=== PATIENT | female | born 1985 | race Caucasian/White ===

== ENCOUNTER 2017-05-10 17:32 | Emergency (ER) | payer BC, MEDICAID ==
[2017-05-10 17:52] VITALS: BP 127/85
[2017-05-10] MEDS ORDERED: Sodium Chloride 0.9% 10 ML Syringe FLUSH PRN (18:04)
[2017-05-10] MEDS ORDERED: diphenhydrAMINE 50 MG/ML SDV IVPUSH ONE (18:12)
[2017-05-10] MEDS ORDERED: Metoclopramide 10 MG/2 ML SDV IVPUSH ONE (18:12)
[2017-05-10] MEDS ORDERED: Ketorolac 30 MG/ML SDV IVPUSH SCH (18:15)
[2017-05-10] MEDS ORDERED: Sodium Chloride 0.9% 1,000 ML IV SCH (18:15)
--- NOTE | 2017-05-10 18:29 | EDM.PDOC ---
ED HPI GENERAL MEDICAL PROBLEM - General Chief Complaint: Headache Stated Complaint: MIGRAINE Time Seen by Provider: 05/10/17 17:57 Source of Information: Reports: Patient, RN Notes Reviewed - History of Present Illness INITIAL COMMENTS - FREE TEXT/NARRATIVE: 31-year-old female comes in with headache. This first started 4 days ago. The headache is been present for most of the 4 days. She does have history of migraines and this is fairly similar. The discomfort this time is more left- sided and also pounding and throbbing in nature. She has had some nausea with this. No recent fever chills or other unusual symptomatology. Treatments DIVISION CONTROLLER: Reports: Other (see below) Other Treatments DIVISION CONTROLLER: excederin migraine at 1000 front of head/top left head Pain Score (Numeric/FACES): 6 - Related Data Allergies Allergy/AdvReac Type Severity Reaction Status Date / Time Penicillins Allergy Rash Verified 05/10/17 17:52 codeine AdvReac Nausea Verified 05/10/17 17:52 Home Meds: Home Meds ALPRAZolam [Alprazolam] 1 tab PO DAILY PRN 05/10/17 [History] Sertraline HCl [Sertraline HCl] 1 tab PO DAILY 05/10/17 [History] atorvaSTATin Calcium [Atorvastatin Calcium] 1 tab PO DAILY 05/10/17 [History] traZODone HCl [Trazodone HCl] 1 tab PO ASDIRECTED 05/10/17 [History] Past Medical History Cardiovascular History: Reports: High Cholesterol Neurological History: Reports: Headaches, Chronic, Migraines Psychiatric History: Reports: Anxiety, Depression - Past Surgical History Female Surgical History: Reports: Section Social & Family History - Family History Family Medical History: Noncontributory - Tobacco Use Smoking Status *Q: Current Every Day Smoker Years of Tobacco use: 1 Packs/Tins Daily: 1 - Caffeine Use Caffeine Use: Reports: Soda - Recreational Drug Use Recreational Drug Use: No ED ROS GENERAL - Review of Systems Review Of Systems: See Below Constitutional: Denies: Fever, Chills HEENT: Denies: Sinus Problem, Throat Pain, Vision Change Respiratory: Denies: Shortness of Breath Cardiovascular: Denies: Chest Pain GI/Abdominal: Reports: Nausea. Denies: Abdominal Pain, Vomiting Musculoskeletal: Denies: Neck Pain, Back Pain Skin: Reports: No Symptoms Neurological: Reports: Headache. Denies: Numbness, Tingling - Physical Exam Exam: See Below General Appearance: Alert, Moderate Distress Eye Exam: Bilateral Eye: PERRL Throat/Mouth: Normal Inspection, Normal Oropharynx Head Exam: Atraumatic. No: Facial Swelling Neck: Supple, Full Range of Motion Respiratory/Chest: No Respiratory Distress, Lungs Clear, Normal Breath Sounds Cardiovascular: Regular Rate, Rhythm Neuro Exam (Abbreviated): Alert, Oriented, No Motor/Sensory Deficits Skin Exam: Warm, Dry, Normal Color Course - Vital Signs Last Recorded V/S: Last Vital Signs Temp 98.1 F 05/10/17 17:48 Pulse 98 05/10/17 17:48 Resp 18 05/10/17 17:48 BP 127/85 05/10/17 17:48 Pulse Ox 98 05/10/17 17:48 - Orders/Labs/Meds Orders: Active Orders 24 hr Category Date Time Status Peripheral IV Care [RC] . DIRECTED Care 05/10/17 18:04 Active Ketorolac [Toradol] Med 05/10/17 18:15 Active 30 mg IVPUSH ONETIME Sodium Chloride 0.9% [Normal Saline] 1,000 ml Med 05/10/17 18:15 Active IV ONETIME Sodium Chloride 0.9% [Saline Flush] Med 05/10/17 18:04 Active 10 ml FLUSH ASDIRECTED PRN Peripheral IV Insertion Adult [OM.PC] Stat Oth 05/10/17 18:04 Ordered Medication Orders Sodium Chloride (Normal Saline) 1,000 mls @ 999 mls/hr IV ONETIME VAMSI Last Admin: 05/10/17 18:35 Dose: 999 mls/hr Ketorolac Tromethamine (Toradol) 30 mg IVPUSH ONETIME VAMSI Last Admin: 05/10/17 18:31 Dose: 30 mg Sodium Chloride (Saline Flush) 10 ml FLUSH ASDIRECTED PRN PRN Reason: Keep Vein Open Last Admin: 05/10/17 18:25 Dose: 10 ml Meds: Medications Generic Name Dose Route Start Last Admin Trade Name Freq PRN Reason Stop Dose Admin Sodium Chloride 1,000 mls @ 999 mls/hr 05/10/17 18:15 05/10/17 18:35 Normal Saline IV 999 mls/hr ONETIME VAMSI Administration Ketorolac Tromethamine 30 mg 05/10/17 18:15 05/10/17 18:31 Toradol IVPUSH 30 mg ONETIME VAMSI Administration Sodium Chloride 10 ml 05/10/17 18:04 05/10/17 18:25 Saline Flush FLUSH 10 ml ASDIRECTED PRN Administration Keep Vein Open Discontinued Medications Generic Name Dose Route Start Last Admin Trade Name Jeannie PRN Reason Stop Dose Admin Diphenhydramine HCl 50 mg 05/10/17 18:12 05/10/17 18:33 Benadryl IVPUSH 05/10/17 18:13 50 mg ONETIME ONE Administration Metoclopramide HCl 10 mg 05/10/17 18:12 05/10/17 18:27 Reglan IVPUSH 05/10/17 18:13 10 mg ONETIME ONE Administration - Re-Assessments/Exams Free Text/Narrative Re-Assessment/Exam: 05/10/17 18:56 Feeling better after IV Toradol, Reglan and Benadryl. The headache is down to about a "4". She would like to wait give this a bit longer and then see if she is going to need further medication or not prior to discharge. I am at the end of my shift. I will visit with nursing staff, Haldol 5 mg IV would be the next medication given if needed. Departure - Departure Time of Disposition: 19:25 Disposition: Home, Self-Care 01 Condition: Fair Clinical Impression: Migraine - Discharge Information Forms: ED Department Discharge Additional Instructions: Rest, continue current medications as previously prescribed, follow-up clinic if not much better by morning as expected, return to ED as needed. - My Orders Last 24 Hours: My Active Orders 05/10/17 18:04 Peripheral IV Care [RC] . DIRECTED Sodium Chloride 0.9% [Saline Flush] 10 ml FLUSH ASDIRECTED PRN Peripheral IV Insertion Adult [OM.PC] Stat 05/10/17 18:15 Ketorolac [Toradol] 30 mg IVPUSH ONETIME Sodium Chloride 0.9% [Normal Saline] 1,000 ml IV ONETIME - Assessment/Plan Last 24 Hours: My Active Orders 05/10/17 18:04 Peripheral IV Care [RC] . DIRECTED Sodium Chloride 0.9% [Saline Flush] 10 ml FLUSH ASDIRECTED PRN Peripheral IV Insertion Adult [OM.PC] Stat 05/10/17 18:15 Ketorolac [Toradol] 30 mg IVPUSH ONETIME Sodium Chloride 0.9% [Normal Saline] 1,000 ml IV ONETIME
== END 2017-05-10 19:45 | disposition home or self-care (01) ==
LOC: JD.ED 17:32
DX: G43.909 Migraine, unspecified, not intractable, without status migrainosus (principal); F41.9 Anxiety disorder, unspecified; F32.9 Major depressive disorder, single episode, unspecified; E78.00 Pure hypercholesterolemia, unspecified; F17.210 Nicotine dependence, cigarettes, uncomplicated; Z79.899 Other long term (current) drug therapy; Z88.0 Allergy status to penicillin; Z88.5 Allergy status to narcotic agent
CPT/HCPCS: 96361; 96374; 96375; 99283; J1200; J1885; J2765; J7040; J7050

== ENCOUNTER 2017-10-13 02:10 | Emergency (ER) | payer BC, MEDICAID ==
[2017-10-13 02:23] VITALS: BP 149/86
--- NOTE | 2017-10-13 02:43 | EDM.PDOC ---
ED HPI GENERAL MEDICAL PROBLEM - General Chief Complaint: ENT Problem Stated Complaint: THROAT PAIN AND TROUBLE BREATHING Time Seen by Provider: 10/13/17 02:35 - History of Present Illness INITIAL COMMENTS - FREE TEXT/NARRATIVE: 32-year-old female presents emergency room with a sore throat. This started about a day ago she's noted some swelling to the back of her throat. She has not had any fevers or chills. She has not had any abdominal pain no nausea no vomiting no diarrhea no cough or congestion. Throat Pain Score (Numeric/FACES): 10 - Related Data Allergies Allergy/AdvReac Type Severity Reaction Status Date / Time Penicillins Allergy Rash Verified 10/13/17 02:19 codeine AdvReac Nausea Verified 10/13/17 02:19 Home Meds: Home Meds ALPRAZolam [Alprazolam] 1 tab PO DAILY PRN 05/10/17 [History] Sertraline HCl [Sertraline HCl] 1 tab PO DAILY 05/10/17 [History] atorvaSTATin Calcium [Atorvastatin Calcium] 1 tab PO DAILY 05/10/17 [History] traZODone HCl [Trazodone HCl] 1 tab PO ASDIRECTED 05/10/17 [History] Clindamycin HCl 300 mg PO Q8H #30 capsule 10/13/17 [Rx] predniSONE [Prednisone] 10 mg PO QAM #3 tablet 10/13/17 [Rx] Past Medical History Cardiovascular History: Reports: High Cholesterol Neurological History: Reports: Headaches, Chronic, Migraines Psychiatric History: Reports: Anxiety, Depression - Past Surgical History Female Surgical History: Reports: Section Social & Family History - Family History Family Medical History: Noncontributory - Tobacco Use Smoking Status *Q: Former Smoker Years of Tobacco use: 15 Packs/Tins Daily: 1 Used Tobacco, but Quit: Yes Month Tobacco Last Used: 2016 - Caffeine Use Caffeine Use: Reports: None - Recreational Drug Use Recreational Drug Use: No ED ROS ENT - Review of Systems Review Of Systems: Unable To Obtain Constitutional: Reports: No Symptoms HEENT: Reports: Throat Pain Respiratory: Reports: No Symptoms Cardiovascular: Reports: No Symptoms GI/Abdominal: Reports: No Symptoms ED EXAM, ENT - Physical Exam Exam: See Below Exam Limited By: No Limitations General Appearance: Alert, No Apparent Distress Ears: Normal External Exam, Normal Canal, Normal TMs Nose: Normal Inspection, Normal Mucousa Mouth/Throat: Normal Gums, Normal Lips, Normal Teeth, Other (Posterior pharynx is moderately erythematous no exudate mildly swollen) Head: Atraumatic, Normocephalic Neck: Normal Inspection, Supple, Non-Tender. No: Lymphadenopathy (L), Lymphadenopathy (R) Respiratory/Chest: No Respiratory Distress, Lungs Clear, Normal Breath Sounds Cardiovascular: Normal Peripheral Pulses, Regular Rate, Rhythm, No Edema GI/Abdominal: Normal Bowel Sounds, Soft, Non-Tender, Other (No splenic or hepatic enlargement) Course - Vital Signs Last Recorded V/S: Last Vital Signs Temp 37.2 C 10/13/17 02:15 Pulse 94 10/13/17 02:15 Resp 18 10/13/17 02:15 BP 149/86 H 10/13/17 02:15 Pulse Ox 100 10/13/17 02:15 - Orders/Labs/Meds Orders: Active Orders 24 hr Category Date Time Status STREP SCRN A RAPID W CULT CONF [RM] Stat Lab 10/13/17 02:31 Results Meds: Medications Discontinued Medications Generic Name Dose Route Start Last Admin Trade Name Jeannie PRN Reason Stop Dose Admin Clindamycin HCl 300 mg 10/13/17 03:00 Cleocin PO 10/13/17 03:01 ONETIME ONE Prednisone 40 mg 10/13/17 02:59 Prednisone PO 10/13/17 03:00 ONETIME ONE - Re-Assessments/Exams Free Text/Narrative Re-Assessment/Exam: 10/13/17 03:11 Rapid strep is positive she'll be started on clindamycin as she is pen allergic and she'll be started on low-dose steroids. Departure - Departure Time of Disposition: 03:11 Disposition: Home, Self-Care 01 Clinical Impression: Strep pharyngitis - Discharge Information Prescriptions: Clindamycin HCl 300 mg PO Q8H #30 capsule predniSONE [Prednisone] 10 mg PO QAM #3 tablet Referrals: Vivien Ross PA-C [Primary Care Provider] - Forms: ED Department Discharge Additional Instructions: Return to the emergency room with any questions problems or worsening symptoms. You been started on 2 medications the first ones prednisone this is a steroid this is to help with the discomfort and swelling in the area your given 40 mg in the emergency room this morning starting Friday when she did take 30 mg every morning for 3 days. You have also been started on clindamycin this is an antibiotic he take one 3 times a day for 10 days. Follow-up in the clinic at the end of this week if needed. You are contagious for the first 24 hours after starting therapy. - My Orders Last 24 Hours: My Active Orders 10/13/17 02:31 STREP SCRN A RAPID W CULT CONF [RM] Stat - Assessment/Plan Last 24 Hours: My Active Orders 10/13/17 02:31 STREP SCRN A RAPID W CULT CONF [RM] Stat
[2017-10-13] MEDS ORDERED: predniSONE 20 MG Tab PO ONE (02:59)
[2017-10-13] MEDS ORDERED: Clindamycin HCl 150 MG Cap PO ONE (03:00)
== END 2017-10-13 03:22 | disposition home or self-care (01) ==
LOC: JD.ED 02:10
DX: J02.0 Streptococcal pharyngitis (principal); E78.00 Pure hypercholesterolemia, unspecified; F32.9 Major depressive disorder, single episode, unspecified; Z87.891 Personal history of nicotine dependence; Z79.899 Other long term (current) drug therapy; Z88.0 Allergy status to penicillin; Z88.5 Allergy status to narcotic agent
CPT/HCPCS: 87430; 99283; A9270

== ENCOUNTER 2019-07-22 18:32 | Emergency (ER) | payer BC ==
[2019-07-22 18:52] VITALS: BP 150/88
--- NOTE | 2019-07-22 19:37 | EDM.PDOCBH ---
ED HPI GENERAL MEDICAL PROBLEM - General Chief Complaint: Behavioral/Psych Stated Complaint: HAVING BAD THOUGHTS Time Seen by Provider: 07/22/19 19:02 Source of Information: Reports: Patient History Limitations: Reports: Other (Flat affect, slightly angry, reluctant to answer questions or elaborate) - History of Present Illness INITIAL COMMENTS - FREE TEXT/NARRATIVE: The patient states that she felt like harming herself by driving her car in to something, on 2 occasions today. She acknowledges that she is under increased stress. She states that she filed a restraining order on a coworker, but that the coworker violated the restraining order. She doesn't feel threatened, exactly, but she does feel unsafe. She denies having harmed herself today, or ever. She denies drinking alcohol or using any recreational drugs, recently. The patient states that she has had similar thoughts of harming herself on 2 prior occasions; the first when she was in high school, the second about 3 years ago. On neither of those occasions was she psychiatrically evaluated, however, her PCP started her on Wellbutrin and sertraline after the episode 3 years ago. The patient states that she has never seen a Psychiatrist or been psychiatrically hospitalized. She states that she stopped all of her medications, including her Wellbutrin, sertraline, alprazolam, metformin, and atorvastatin about 2 weeks ago. She states that she didn't think she needed them anymore. The patient denies having recent illness, such as fever, chills, cough, dyspnea , chest pain, palpitations, nausea, vomiting, constipation, diarrhea, abdominal pain, urinary symptoms, recent weight gain or weight loss, recent bloody bowel movements or black bowel movements, joint aches, headaches, or rashes. The patient's PCP is SEPIDEH Diaz. She has seen Paula Orellana NP for women's health in the past. - Related Data Allergies Allergy/AdvReac Type Severity Reaction Status Date / Time Penicillins Allergy Rash Verified 07/22/19 18:52 codeine AdvReac Nausea Verified 07/22/19 18:52 Home Meds: Home Meds ALPRAZolam [Alprazolam] 1 tab PO DAILY PRN 05/10/17 [History] Sertraline HCl 150 mg PO DAILY 05/10/17 [History] atorvaSTATin Calcium [Atorvastatin Calcium] 1 tab PO DAILY 05/10/17 [History] traZODone HCl [Trazodone HCl] 1 tab PO ASDIRECTED 05/10/17 [History] Copper [Paragard T 380-A] 1 each IY ASDIRECTED 06/11/19 [History] Hydrocodone Bit/Homatrop Me-Br [Hydrocodone Compound Syrup] 5 ml PO Q6H PRN #1 bottle 06/11/19 [Rx] buPROPion [Wellbutrin] 0 mg PO DAILY 06/11/19 [History] metFORMIN [Glucophage] 500 mg PO BIDMEALS 06/11/19 [History] Past Medical History HEENT History: Reports: Impaired Vision Cardiovascular History: Reports: High Cholesterol (untreated) COUNTY AGENT History: Reports: Psychiatric History: Reports: Anxiety (untreated), Depression (untreated) Endocrine/Metabolic History: Reports: Other (See Below) (Insulin resistance, untreated) - Past Surgical History HEENT Surgical History: Reports: Oral Surgery (wisdom teeth extraction) Female Surgical History: Reports: Section (x 3) Social & Family History - Family History Family Medical History: Noncontributory - Tobacco Use Smoking Status *Q: Current Every Day Smoker Years of Tobacco use: 15 Packs/Tins Daily: 0.3 Packs/Tins Daily Comment: Down from 1/2 ppd - Caffeine Use Caffeine Use: Reports: Coffee, Soda - Alcohol Use Alcohol Use History: Yes Alcohol Use Frequency: Socially (to excess on occasion) - Recreational Drug Use Recreational Drug Use: Yes Drug Use in Last 12 Months: No Recreational Drug Type: Reports: Marijuana/Hashish (last smoked in HS) - Living Situation & Occupation Living situation: Reports: , with Family (3 kids) Occupation: Employed ([employer]) ED ROS GENERAL - Review of Systems Review Of Systems: ROS reveals no pertinent complaints other than HPI. Neurological: Reports: Headache (frequent) ED EXAM, BEHAVIORAL HEALTH - Physical Exam Exam: See Below Exam Limited By: No Limitations General Appearance: Alert, WD/WN, No Apparent Distress Eye Exam: Bilateral Eye: EOMI, Normal Inspection Ears: Normal External Exam, Hearing Grossly Normal Nose: Normal Inspection Throat/Mouth: Normal Inspection, Normal Lips, Normal Voice, No Airway Compromise Head: Atraumatic, Normocephalic Neck: Normal Inspection, Full Range of Motion Respiratory/Chest: No Respiratory Distress, Lungs Clear, Normal Breath Sounds, No Accessory Muscle Use Cardiovascular: Normal Peripheral Pulses, Regular Rate, Rhythm, No Gallop, No JVD, No Murmur, No Rub GI/Abdominal: Normal Bowel Sounds, Soft, Non-Tender, No Organomegaly, No Distention, No Abnormal Bruit, No Mass (Female) Exam: Deferred Rectal (Female) Exam: Deferred Back Exam: Normal Inspection, Full Range of Motion, NT Extremities: Normal Inspection, Normal Range of Motion, No Pedal Edema, Normal Capillary Refill Neurological: Alert, Normal Cognition, No Motor/Sensory Deficits, Oriented x 3 Psychiatric: Flat Affect Skin Exam: Warm, Dry, Intact, Normal color, No rash EKG INTERPRETATION EKG Date: 07/22/19 Time: 19:47 Rhythm: NSR Rate (Beats/Min): 84 [place]: Normal P-Wave: Present QRS: Normal ST-T: Normal QT: Normal Comparison: NA - No Prior EKG COURSE, BEHAVIORAL HEALTH COMP - Course Vital Signs: Last Vital Signs Temp 36.4 C 07/22/19 18:50 Pulse Resp 20 07/22/19 18:50 BP 150/88 H 07/22/19 18:50 Pulse Ox 99 07/22/19 18:50 Orders, Labs, Meds: Active Orders 24 hr Category Date Time Status EKG Documentation Completion [RC] STAT Care 07/22/19 19:35 Active Laboratory Tests 07/22/19 07/22/19 07/22/19 Range/Units 19:45 19:45 19:54 WBC 10.88 H (3.98-10.04) K/mm3 RBC 4.33 (3.98-5.22) M/mm3 Hgb 13.0 (11.2-15.7) gm/dl Hct 37.8 (34.1-44.9) % MCV 87.3 (79.4-94.8) fl MCH 30.0 (25.6-32.2) pg MCHC 34.4 (32.2-35.5) g/dl RDW Std Deviation 39.4 (36.4-46.3) fL Plt Count 389 H (182-369) K/mm3 MPV 10.4 (9.4-12.3) fl Neutrophils % (Manual) 63 H (40-60) % Band Neutrophils % 0 (0-10) % Lymphocytes % (Manual) 26 (20-40) % Atypical Lymphs % 0 % Monocytes % (Manual) 7 (2-10) % Eosinophils % (Manual) 4 (0.7-5.8) % Basophils % (Manual) 0 L (0.1-1.2) Platelet Estimate Adequate RBC Morph Comment Normal Sodium (136-145) mEq/L Potassium (3.5-5.1) mEq/L Chloride (98-107) mEq/L Carbon Dioxide (21-32) mEq/L Anion Gap (5-15) BUN (7-18) mg/dL Creatinine (0.55-1.02) mg/dL Est Cr Clr Drug Dosing mL/min Estimated GFR (MDRD) (>60) mL/min BUN/Creatinine Ratio (14-18) Glucose (74-106) mg/dL Calcium (8.5-10.1) mg/dL Total Bilirubin (0.2-1.0) mg/dL AST (15-37) U/L ALT (14-59) U/L Alkaline Phosphatase (46-116) U/L Total Protein (6.4-8.2) g/dl Albumin (3.4-5.0) g/dl Globulin gm/dL Albumin/Globulin Ratio (1-2) TSH 3rd Generation (0.358-3.74) uIU/mL Urine HCG, Qual Negative (NEGATIVE) Salicylates (2.8-20) mg/dL Urine Opiates Screen Negative (NPKUCK=801) Ur Buprenorphine Scrn Negative (CUTOFF=10) Ur Oxycodone Screen Negative (PQO8QN=217) Urine Methadone Screen Negative (NNMKIO=332) Ur Propoxyphene Screen Negative (ZOHSVH=060) Acetaminophen (10-30) ug/mL Ur Barbiturates Screen Negative (LHPBLF=880) Ur Tricyclics Screen Negative (NZISFZ=116) Ur Phencyclidine Scrn Negative (CUTOFF=25) Ur Amphetamine Screen Negative (CXXRZQ=120) U Methamphetamines Scrn Negative (YDEWWL=990) U Benzodiazepines Scrn Negative (TDLLKA=641) U Cocaine Metab Screen Negative (EUCTEJ=913) U Marijuana (THC) Screen Negative (CUTOFF=50) Ethyl Alcohol (0.00) gm% 07/22/19 07/22/19 Range/Units 19:54 19:54 WBC (3.98-10.04) K/mm3 RBC (3.98-5.22) M/mm3 Hgb (11.2-15.7) gm/dl Hct (34.1-44.9) % MCV (79.4-94.8) fl MCH (25.6-32.2) pg MCHC (32.2-35.5) g/dl RDW Std Deviation (36.4-46.3) fL Plt Count (182-369) K/mm3 MPV (9.4-12.3) fl Neutrophils % (Manual) (40-60) % Band Neutrophils % (0-10) % Lymphocytes % (Manual) (20-40) % Atypical Lymphs % % Monocytes % (Manual) (2-10) % Eosinophils % (Manual) (0.7-5.8) % Basophils % (Manual) (0.1-1.2) Platelet Estimate RBC Morph Comment Sodium 142 (136-145) mEq/L Potassium 3.3 L (3.5-5.1) mEq/L Chloride 107 (98-107) mEq/L Carbon Dioxide 24 (21-32) mEq/L Anion Gap 14.3 (5-15) BUN 11 (7-18) mg/dL Creatinine 0.8 (0.55-1.02) mg/dL Est Cr Clr Drug Dosing 75.48 mL/min Estimated GFR (MDRD) > 60 (>60) mL/min BUN/Creatinine Ratio 13.8 L (14-18) Glucose 96 (74-106) mg/dL Calcium 9.2 (8.5-10.1) mg/dL Total Bilirubin 0.2 (0.2-1.0) mg/dL AST 10 L (15-37) U/L ALT 22 (14-59) U/L Alkaline Phosphatase 55 (46-116) U/L Total Protein 7.3 (6.4-8.2) g/dl Albumin 3.7 (3.4-5.0) g/dl Globulin 3.6 gm/dL Albumin/Globulin Ratio 1.0 (1-2) TSH 3rd Generation 2.062 (0.358-3.74) uIU/mL Urine HCG, Qual (NEGATIVE) Salicylates 1.2 L (2.8-20) mg/dL Urine Opiates Screen (RKSFFS=082) Ur Buprenorphine Scrn (CUTOFF=10) Ur Oxycodone Screen (FPX7BZ=107) Urine Methadone Screen (UFMQXA=976) Ur Propoxyphene Screen (EKXIPR=351) Acetaminophen 0 L (10-30) ug/mL Ur Barbiturates Screen (HQKXLG=896) Ur Tricyclics Screen (KVSCQK=328) Ur Phencyclidine Scrn (CUTOFF=25) Ur Amphetamine Screen (DHWEOA=508) U Methamphetamines Scrn (UBAAVR=150) U Benzodiazepines Scrn (JHYOAB=900) U Cocaine Metab Screen (YQVLSG=560) U Marijuana (THC) Screen (CUTOFF=50) Ethyl Alcohol 0.00 (0.00) gm% Medical Clearance: 07/22/19 19:36 The patient appears to be suffering from significant depression and suicidal ideation, and while she has not attempted to harm herself, she does have a plan of sorts, therefore she would likely benefit from psychiatric hospitalization. The alternative would be to have her restart her Wellbutrin and sertraline and have her follow-up with a Psychiatrist as an outpatient, but that could take months. The patient is agreeable to being psychiatrically admitted. I have ordered a psychiatric medical clearance panel. 07/22/19 20:05 Notified by Paula BAZZI that the patient asked for her phone, so that she could call her to come get her. As above, however, the patient is suicidal and has a plan, therefore I think she needs to be psychiatrically admitted. Since she is now asking to leave, I think she will need to be involuntarily admitted. 07/22/19 21:38 The patient's CBC is remarkable for WBC count mildly elevated at 10.88, but with 0% bandemia. Her platelets are elevated at 389,000. The remainder of her CBC is unremarkable. Her CMP is remarkable for a potassium slightly depressed at 3.3, with the remainder of her CMP being unremarkable. Her acetaminophen level is 0. Her salicylate level is within normal limits at 1.2. Her EtOH level is 0. Her TSH is within normal limits at 2.062. Her urine drug screen is completely negative. Her urine test is negative. Notified that the patient called her , and that he is in the waiting room , however, Paula BAZZI is not comfortable in allowing him to come back to see the patient. We will begin looking for a psychiatric bed. 07/22/19 22:[address] Kamlesh Rico, Psychiatrist at [facility], at 21:48. He accepted the patient for admission to their psychiatric unit. The patient will need to go involuntarily, by the [facility] department , therefore I will fill out the 24-hour hold paperwork. 07/22/19 22:15 Notified that the [facility] department will not be able to transport the patient to [place] until the morning. Departure - Departure Time of Disposition: 22:05 Disposition: DC/Tfer to Psych Hosp/Unit 65 Condition: Good Clinical Impression: Suicidal ideation, Depression - Discharge Information *PRESCRIPTION DRUG MONITORING PROGRAM REVIEWED*: Not Applicable *COPY OF PRESCRIPTION DRUG MONITORING REPORT IN PATIENT ANIA: Not Applicable Referrals: Vivien Ross PA-C [Primary Care Provider] - - My Orders Last 24 Hours: My Active Orders 07/22/19 19:35 EKG Documentation Completion [RC] STAT - Assessment/Plan Last 24 Hours: My Active Orders 07/22/19 19:35 EKG Documentation Completion [RC] STAT
[2019-07-22 20:49] LABS: ACETAMINOPHEN 0 ug/mL (10-30)
== END 2019-07-23 11:00 ==
LOC: JD.ED 18:32
DX: F32.9 Major depressive disorder, single episode, unspecified (principal); E78.00 Pure hypercholesterolemia, unspecified; F41.9 Anxiety disorder, unspecified; F17.210 Nicotine dependence, cigarettes, uncomplicated; Z88.0 Allergy status to penicillin; Z88.5 Allergy status to narcotic agent; Z79.899 Other long term (current) drug therapy
CPT/HCPCS: 36415; 80053; 80306; 81025; 84443; 85007; 85027; 93005; 99285-25; G0480

== ENCOUNTER 2025-09-03 13:37 | Emergency (ER) | payer BC, OTHER ==
[2025-09-03] MEDS ORDERED: Sodium Chloride 0.9% 10 ML Syringe FLUSH PRN (14:14)
[2025-09-03 14:26] LABS: BASOPHILS ABSOLUTE AUTO 0.0 K/mm3 (0.0-0.2); BASOPHILS PERCENT AUTO 0.6 % (0.0-1.0); EOSINOPHILS ABSOLUTE AUTO 0.0 K/mm3 (0.0-0.4); EOSINOPHILS PERCENT AUTO 0.0 % (0.0-6.0); IMMATURE GRAN ABSOLUTE AUTO 0.01 K/mm3 (0.00-0.05); IMMATURE GRAN PERCENT AUTO 0.2 % (0.0-0.4); LYMPHOCYTES ABSOLUTE AUTO 0.7 K/mm3 (1.0-4.8); LYMPHOCYTES PERCENT AUTO 13.8 % (24.0-44.0); MEAN PLATELET VOLUME 10.1 fl (9.4-12.3); MONOCYTES ABSOLUTE AUTO 0.4 K/mm3 (0.0-0.8); MONOCYTES PERCENT AUTO 8.3 % (0.0-8.0); NEUTROPHILS ABSOLUTE AUTO 3.7 K/mm3 (1.8-7.7); NEUTROPHILS PERCENT AUTO 77.1 % (41.0-71.0); NRBC ABSOLUTE 0.00 (0.00-0.02); NRBC PERCENT 0.0 % (0.0-0.2); PLATELET COUNT,PLT 266 K/mm3 (150-400); RED BLOOD CELL COUNT 4.85 M/mm3 (4.10-5.30); WHITE BLOOD CELL COUNT,WBC 4.80 K/mm3 (3.9-11.3)
[2025-09-03] MEDS: Ketorolac 30 MG/ML SDV IVPUSH ONE (14:26)
[2025-09-03 14:43] LABS: A/G RATIO 0.9 (1-2); ALANINE AMINOTRANSFERASE,ALT 26.0 U/L (14-59); ASPARTATE AMNIOTRANSFERASE,AST 18.0 U/L (15-37); BILIRUBIN TOTAL 0.5 mg/dL (0.2-1.0); BLOOD UREA NITROGEN,BUN 11.0 mg/dL (7-18); CARBON DIOXIDE,CO2 24.0 mEq/L (21-32); CHLORIDE,CL 102.0 mEq/L (98-107); CREATININE 0.8 mg/dL (0.55-1.02); EST CRCL DRUG DOSING (CG) 71.24 mL/min; ESTIMATED GFR 96.0 mL/min (>60); GLUCOSE RANDOM 95.0 mg/dL (70-99); POTASSIUM,K 3.5 mEq/L (3.5-5.1); PROTEIN TOTAL,TP 7.6 g/dl (6.4-8.2); SODIUM,NA 136.0 mEq/L (136-145)
[2025-09-03] MEDS: Iopamidol 612 MG/ML 100 ML Bottle IVPUSH ONE (14:50)
[2025-09-03] MEDS: Sodium Chloride 0.9% 10 ML Syringe FLUSH ONE (14:50)
[2025-09-03] MEDS ORDERED: Naloxone 0.4 MG/ML SDV IVPUSH PRN (15:35)
[2025-09-03 16:57] VITALS: BP 114/79; PULSE 103
== END 2025-09-03 16:45 | disposition home or self-care (01) ==
LOC: JD.ED 13:37
DX: K52.9 Noninfective gastroenteritis and colitis, unspecified (principal); E78.00 Pure hypercholesterolemia, unspecified; Z88.0 Allergy status to penicillin; Z88.5 Allergy status to narcotic agent; Z79.899 Other long term (current) drug therapy
CPT/HCPCS: 36415; 74177; 80053; 83690; 83735; 84703; 85025; 85652; 86140; 96361; 96374; 96375; 99284; J1885; J2270; J7030; Q9967

== ENCOUNTER 2025-09-05 16:36 | Emergency (ER) | payer OTHER ==
[2025-09-05] MEDS ORDERED: Sodium Chloride 0.9% 10 ML Syringe FLUSH PRN (16:51)
[2025-09-05 16:59] LABS: BASOPHILS ABSOLUTE AUTO 0.0 K/mm3 (0.0-0.2); BASOPHILS PERCENT AUTO 0.8 % (0.0-1.0); EOSINOPHILS ABSOLUTE AUTO 0.1 K/mm3 (0.0-0.4); EOSINOPHILS PERCENT AUTO 1.3 % (0.0-6.0); IMMATURE GRAN ABSOLUTE AUTO 0.03 K/mm3 (0.00-0.05); IMMATURE GRAN PERCENT AUTO 0.6 % (0.0-0.4); LYMPHOCYTES ABSOLUTE AUTO 1.9 K/mm3 (1.0-4.8); LYMPHOCYTES PERCENT AUTO 35.6 % (24.0-44.0); MEAN PLATELET VOLUME 9.8 fl (9.4-12.3); MONOCYTES ABSOLUTE AUTO 0.7 K/mm3 (0.0-0.8); MONOCYTES PERCENT AUTO 12.7 % (0.0-8.0); NEUTROPHILS ABSOLUTE AUTO 2.5 K/mm3 (1.8-7.7); NEUTROPHILS PERCENT AUTO 49.0 % (41.0-71.0); NRBC ABSOLUTE 0.00 (0.00-0.02); NRBC PERCENT 0.0 % (0.0-0.2); PLATELET COUNT,PLT 312 K/mm3 (150-400); RED BLOOD CELL COUNT 4.22 M/mm3 (4.10-5.30); WHITE BLOOD CELL COUNT,WBC 5.19 K/mm3 (3.9-11.3)
[2025-09-05 17:30] LABS: A/G RATIO 0.8 (1-2); ALANINE AMINOTRANSFERASE,ALT 20 U/L (14-59); ASPARTATE AMNIOTRANSFERASE,AST 15 U/L (15-37); BILIRUBIN TOTAL 0.3 mg/dL (0.2-1.0); BLOOD UREA NITROGEN,BUN 9 mg/dL (7-18); CARBON DIOXIDE,CO2 26 mEq/L (21-32); CHLORIDE,CL 105 mEq/L (98-107); CREATININE 0.7 mg/dL (0.55-1.02); EST CRCL DRUG DOSING (CG) 53.08 mL/min; ESTIMATED GFR 113 mL/min (>60); GLUCOSE RANDOM 92 mg/dL (70-99); POTASSIUM,K 3.3 mEq/L (3.5-5.1); PROTEIN TOTAL,TP 7.0 g/dl (6.4-8.2); SODIUM,NA 140 mEq/L (136-145)
[2025-09-05 17:33] LABS: TROPONIN I HIGH SENSITIVITY < 4 pg/mL (<=51)
[2025-09-05] MEDS: Alum Hydrox/Mag Hydrox/Simeth 30 ML, Lidocaine 2% 15 ML PO ONE (17:48)
[2025-09-05 20:24] VITALS: BP 128/76; PULSE 74
== END 2025-09-05 20:04 | disposition home or self-care (01) ==
LOC: JD.ED 16:36
DX: R07.89 Other chest pain (principal); E78.00 Pure hypercholesterolemia, unspecified; Z88.0 Allergy status to penicillin; Z88.5 Allergy status to narcotic agent; Z79.899 Other long term (current) drug therapy
CPT/HCPCS: 36415; 71045; 80053; 83880; 84484; 84703; 85025; 93005; 96374; 99285; J1308; J3490; J7030; A9270-GY